=== PATIENT | female | born 1995 | race Hispanic/Latino ===

== ENCOUNTER 2021-07-09 22:26 | Emergency (ER) | payer MEDICAID ==
[2021-07-09 22:51] VITALS: BP 112/85
== END 2021-07-11 14:01 | disposition admitted as inpatient to this hospital (09) ==
LOC: ED 22:26
DX: R20.2 Paresthesia of skin (principal); Z53.21 Procedure and treatment not carried out due to patient leaving prior to being seen by health care provider